=== PATIENT | male | born 1945 | race Caucasian/White ===

== ENCOUNTER 2019-05-11 19:05 | Emergency (ER) | payer OTHER ==
[2019-05-11 19:23] VITALS: BP 177/81; PULSE 74; TEMP 98.7; BMI 21.7
[2019-05-11] MEDS ORDERED: ACETAMINOPHEN 500 MG TABLET (FP) PO ONE (19:29)
[2019-05-11] MEDS ORDERED: ACETAMINOPHEN 500 MG TABLET (FP) ONE (19:31)
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
== END 2019-05-11 21:00 | disposition home or self-care (01) ==
LOC: FER 19:05
DX: M79.10 Myalgia, unspecified site (principal); S39.012A Strain of muscle, fascia and tendon of lower back, initial encounter; V43.62XA Car passenger injured in collision with other type car in traffic accident, initial encounter; Y93.89 Activity, other specified; Y92.410 Unspecified street and highway as the place of occurrence of the external cause; I10 Essential (primary) hypertension
CPT/HCPCS: 72050-TC-FY; 72070-TC-FY; 72110-TC-FY; 73030-TC-LT-FY; 73030-TC-RT-FY; 99281-25